=== PATIENT | male | born 1980 | race Caucasian/White ===

== ENCOUNTER 2024-07-14 15:10 | Outpatient (AMB) | payer OTHER, SELFPAY ==
--- NOTE | 2024-07-14 15:13 | A.OFFVIS_ITS ---
Vital Signs 07/14/24 15:16 Height 5 ft 10 in Weight 283 lb 8.231 oz BMI 40.7 BP 136/88 Blood Pressure Location Rt brachial Position Sitting Pulse 103 H Pulse Source Pulse Oximeter Pulse Oximetry (%) 99 Oxygen Delivery Method Room Air Intake Visit Reasons: Hypogonadism Intake Note: New patient internally referred by PCP office Vanda Soria PA-C for Hypogonadism. Hotel Sales Manager Required: No Accompanied by: Self / Same As Patient Allergies valsartan Adverse Reaction (Unknown, Verified 07/14/24 15:17) Headache viloxazine [From Qelbree] Adverse Reaction (Unknown, Verified 07/14/24 15:17) High critically, Anaphylaxis Medication List - Last Reviewed 07/14/24 by RUIZ Mancia desvenlafaxine ER 100 mg PO DAILY methylphenidate HCl ER 36 mg PO DAILY metoprolol succinate ER 100 mg PO DAILY tirzepatide (Mounjaro) 7.5 mg subcut QWEEK HPI Comments Details: The patient is a 43-year-old male presenting with concerns of low testosterone levels and associated symptoms. He has experienced symptoms consistent with hypogonadism for over a year, including erectile dysfunction, reduced libido, and decreased facial hair growth. He has successfully managed sleep apnea with CPAP therapy and achieved control over his diabetes, yet testosterone levels remain low. Previous evaluations involved multiple blood tests confirming low testosterone but no imaging or extensive pituitary evaluation. The patient reports fatigue and decreased muscle strength. He denies significant testicular changes or history of mumps. He recalls past concussions from high school football. He has two children and experienced natural conception. Headaches have improved with diabetes control. The patient manages sleep apnea with CPAP and denies breast tenderness, dizziness, or unexplained weight loss. Weight fluctuation occurred while on Ozempic. The patient denies using anabolic steroids or narcotics and reports minimal alcohol consumption. 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 He is concerned about the impact of his symptoms on his quality of life. - Ozempic for weight management: Initial weight loss with subsequent regain. - CPAP therapy for sleep apnea: Reports significant improvement in symptoms. - Methylphenidate for ADHD: Dose limited due to heart rate concerns. - Metoprolol for heart rate control: Given due to elevated resting heart rate. - Desvenlafaxine for depression: Ongoing treatment with psychiatrist. First diagnosed with Hypogonadism 1 yr ago with labs revealing low testosterone . Not Was started on Testosterone supplementation Not Currently using testosterone. Currently not achieving spontaneous am erections, and unable to achieve erection when desired. Reports low libido. Decreased facial hair and shaving frequency. Denies any change in size or shape of testicles. Denies penile discharge or scrotal tenderness. Denies any history of mumps orchitis. Denies any head trauma except high school football. Has history of KYE. with children who were conceived spontaneously. Sense of smell intact. Denies headache or visual changes, gynecomastia or galactorrhea. Denies orthostatic symptoms, weight loss. Denies change in size of hands or feet. Denies hair loss, weight gain, cold intolerance. No Use of anabolic steroids . No use of methadone or opoids History of DVT or PE: No Labs: T=156 /free T=1.9 PSA CBC [facility] Medical History (Updated 07/14/24 @ 15:39 by Jose Lopez MD) Hypogonadism, testicular Surgical History History of orthopedic surgery Family History Father Depressive disorder Anxiety Malignant neoplasm of skin Mother History of CVA (cerebrovascular accident) Social History Alcohol intake: current Patient Tobacco Use Status: Former Tobacco user Physical Exam Vital Signs: Last Vital Signs Pulse 103 H 07/14/24 15:16 BP 136/88 07/14/24 15:16 Pulse Ox 99 07/14/24 15:16 Oxygen Delivery Method Room Air 07/14/24 15:16 BMI result Body Mass Index 40.7 There is the absence of eunichoidal proportions. Neck exam reveals nl thyroid about 15 gms. Chest exam reveals absence of gynecomastia. Lungs CTA. Heart is S1 S2 Reg R/R. -M/R/G. Abdominal exam is benign. Muscle strength is 5/5 proximally. Examination of genitalia reveals nl size pthalus . Testes are of nl size and consistency. There is Bill Stage V Hair development Assessment & Plan Assessment & Plan (1) Hypogonadism in male: Code(s): E29.1 - Testicular hypofunction Plan This is a 43-year-old white male with a history of low testosterone /obesity. Distinguish between primary and secondary hypogonadism . Plan is to repeat testosterone in a.m. fasting along with LH and FSH as well as am cortisol and ferritin Further workup based on above 1. Hypogonadism The patient exhibits signs of hypogonadism such as erectile dysfunction and reduced libido, supported by previous low testosterone tests. I will conduct morning fasting tests for testosterone, LH, FSH, and cortisol levels. Imaging of the pituitary may be needed if levels indicate. Testosterone therapy will be considered if hypogonadism is confirmed. 2. Sleep Apnea The patient manages sleep apnea with CPAP, improving symptoms. Continued adherence to CPAP is necessary, especially if testosterone therapy is initiated, as it may exacerbate untreated sleep apnea. 4. Erectile Dysfunction and Depression Erectile dysfunction and depression may relate to low testosterone. Addressing hypogonadism could alleviate these symptoms. Continuation of psychiatric treatment is encouraged. I discussed with the patient the potential causes of his low testosterone levels and the importance of determining the etiology before initiating treatment. We talked about the pathway of testosterone production and the potential for issues at different levels, such as the pituitary gland. The risks and benefits of testosterone replacement therapy were reviewed, highlighting its potential to improve symptoms of hypogonadism and the need for careful monitoring. I emphasized the importance of bringing in sleep study results, as untreated sleep apnea can worsen with testosterone therapy. We outlined the next steps, including specific blood tests, and discussed the possibility of imaging if indicated. The patient was informed about the importance of supervisor hardboard fasting blood tests for accurate hormone levels. - Continue using CPAP for sleep apnea management. - Schedule morning fasting blood tests for testosterone, LH, FSH, and cortisol levels. - Bring sleep study results to the next appointment. - - Return for follow-up in two months for further evaluation and discussion of test results. The patient had an opportunity to ask questions regarding treatment plan. The patient expressed understanding and agreement with the above treatment plan. Patient was informed and verbally consented to the use of an ambient scribe for clinic note documentation during this visit. Orders: Orders Lutenizing Hormone Today E29.1 - Testicular hypofunction Follicle Stimulating Hormone Today E29.1 - Testicular hypofunction Ferritin Today E29.1 - Testicular hypofunction Testosterone, Free/Total Today E29.1 - Testicular hypofunction Cortisol Random Today E29.1 - Testicular hypofunction Coding Level of Care Code New Pt Level 4 (95785) Diagnoses Hypogonadism in male E29.1
[2024-07-14 15:16] VITALS: BP 136/88; PULSE 103; O2SAT 99; BMI 40.7
--- OUTSIDE RECORDS SUMMARY | 2024-07-14 15:53 | XMS_ITS | Clinical Summary ---
[facility] Address [address] [place] [address] Care Team Providers Care Customs Manager Name Role Phone Unavailable Primary Care Provider Unavailabl e Social History Tobacco Use Types Packs/Day Years Used Date Smoking Tobacco: Never Assessed Sex and Gender Information Value Date Recorded Sex Assigned at Not on file Gender Identity Not on file Sexual Orientation Not on file Plan of Treatment Not on file
== END 2024-07-14 16:01 | disposition home or self-care (01) ==
LOC: HO.ENCR 15:11
PROVIDERS: PCP Physician Assistant Medical; Visit Provider Internal Medicine Endocrinology, Diabetes & Metabolism
DX: E29.1 Testicular hypofunction (principal)
CPT/HCPCS: 99204

== ENCOUNTER → 2024-07-14 15:10 | Outpatient (BNVA) | payer OTHER, SELFPAY | PROVIDERS: PCP Physician Assistant Medical; Visit Provider Internal Medicine Endocrinology, Diabetes & Metabolism ==

== ENCOUNTER 2024-09-10 07:40 | Outpatient (REF) | payer OTHER, SELFPAY ==
--- OUTSIDE RECORDS SUMMARY | 2024-09-10 07:42 | XMS_ITS | Clinical Summary ---
[facility] Address [address] [place] [address] Care Team Providers Care Pump Servicer Helper Name Role Phone Unavailable Primary Care Provider Unavailabl e Social History Tobacco Use Types Packs/Day Years Used Date Smoking Tobacco: Never Assessed Sex and Gender Information Value Date Recorded Sex Assigned at Not on file Gender Identity Not on file Sexual Orientation Not on file Plan of Treatment Not on file
[2024-09-10 10:24] LABS: Ferritin 109 ng/mL (20-250)
[2024-09-11 18:13] LABS: Follicle Stimulating Hormone 6.9 mIU/mL (1.4-12.8)
[2024-09-16 10:49] LABS: Testosterone, Free 58.6 pg/mL (35.0-155.0)
== END 2024-09-10 07:41 | disposition home or self-care (01) ==
LOC: HO.10HDL 07:40
PROVIDERS: Visit Provider Internal Medicine Endocrinology, Diabetes & Metabolism
DX: E29.1 Testicular hypofunction (principal)
CPT/HCPCS: 36415; 82533; 82728; 83001; 83002; 84402; 84403

== ENCOUNTER 2024-09-14 07:54 | Outpatient (AMB) | payer OTHER, SELFPAY ==
--- OUTSIDE RECORDS SUMMARY | 2024-09-14 07:57 | XMS_ITS | Clinical Summary ---
[facility] Address [address] [place] [address] Care Team Providers Care Parking Enforcement Technician Name Role Phone Unavailable Primary Care Provider Unavailabl e Social History Tobacco Use Types Packs/Day Years Used Date Smoking Tobacco: Never Assessed Sex and Gender Information Value Date Recorded Sex Assigned at Not on file Gender Identity Not on file Sexual Orientation Not on file Plan of Treatment Not on file
[2024-09-14 08:03] VITALS: BP 128/66; PULSE 86; O2SAT 98; BMI 40.7
--- NOTE | 2024-09-14 08:03 | MHC.OFFVIS ---
Vital Signs 09/14/24 08:03 Height 5 ft 10 in Weight 283 lb 15.286 oz BMI 40.7 BP 128/66 Blood Pressure Location Lt brachial Position Sitting Pulse 86 Pulse Source Pulse Oximeter Pulse Oximetry (%) 98 Oxygen Delivery Method Room Air Intake Visit Reasons: f/u hypogonadism Intake Note: Patient present today for Hypogonadism follow up. Palliative Care Nurse Practitioner Required: No Accompanied by: Self / Same As Patient Allergies valsartan Adverse Reaction (Unknown, Verified 09/14/24 08:08) Headache viloxazine (From Qelbree) Adverse Reaction (Unknown, Verified 09/14/24 08:08) High critically, Anaphylaxis Medication List - Last Reconciled 09/14/24 by Jose Lopez MD desvenlafaxine ER 100 mg PO DAILY losartan 100 mg PO DAILY methylphenidate HCl ER 36 mg PO DAILY metoprolol succinate ER 100 mg PO DAILY tirzepatide (Mounjaro) 7.5 mg subcut QWEEK HPI Comments Details: The patient is a 43-year-old male presenting with concerns of low testosterone levels and associated symptoms. He has experienced symptoms consistent with hypogonadism for over a year, including erectile dysfunction, reduced libido, and decreased facial hair growth. He has successfully managed sleep apnea with CPAP therapy and achieved control over his diabetes, yet testosterone levels remain low. Previous evaluations involved multiple blood tests confirming low testosterone but no imaging or extensive pituitary evaluation. The patient reports fatigue and decreased muscle strength. He denies significant testicular changes or history of mumps. He recalls past concussions from high school football. He has two children and experienced natural conception. Headaches have improved with diabetes control. The patient manages sleep apnea with CPAP and denies breast tenderness, dizziness, or unexplained weight loss. Weight fluctuation occurred while on Ozempic. The patient denies using anabolic steroids or narcotics and reports minimal alcohol consumption. 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 He is concerned about the impact of his symptoms on his quality of life. - Ozempic for weight management: Initial weight loss with subsequent regain. - CPAP therapy for sleep apnea: Reports significant improvement in symptoms. - Methylphenidate for ADHD: Dose limited due to heart rate concerns. - Metoprolol for heart rate control: Given due to elevated resting heart rate. - Desvenlafaxine for depression: Ongoing treatment with psychiatrist. First diagnosed with Hypogonadism 1 yr ago with labs revealing low testosterone . Not Was started on Testosterone supplementation Not Currently using testosterone. Currently not achieving spontaneous am erections, and unable to achieve erection when desired. Reports low libido. Decreased facial hair and shaving frequency. Denies any change in size or shape of testicles. Denies penile discharge or scrotal tenderness. Denies any history of mumps orchitis. Denies any head trauma except high school football. Has history of KYE. with children who were conceived spontaneously. Sense of smell intact. Denies headache or visual changes, gynecomastia or galactorrhea. Denies orthostatic symptoms, weight loss. Denies change in size of hands or feet. Denies hair loss, weight gain, cold intolerance. No Use of anabolic steroids . No use of methadone or opoids History of DVT or PE: No Labs: T=156 /free T=1.9 PSA CBC Recent labs pointed towards secondary hypogonadism an MRI of the pituitary was normal. Will have her repeat free testosterone is pending. The patient is a 43-year-old male presenting with concerns related to low testosterone levels and associated symptoms. The patient reports persistent fatigue and lack of improvement in symptoms despite ongoing management. Previous testosterone levels were noted to be borderline low, with the most recent levels still pending. The patient has been using CPAP therapy for sleep apnea consistently. The patient has a history of type 2 diabetes mellitus, which is currently under control with medication. He reports no significant weight loss despite medication adjustments, including the use of Mounjaro. The patient has experienced significant personal stress due to a pending divorce and the disappearance of his spouse. He maintains a healthy diet and is active at work, but reports no significant changes in weight. - Labs: Cortisol level normal, testosterone levels pending. - Imaging: MRI of the pituitary not yet performed. [facility] Medical History (Updated 07/14/24 @ 15:39 by Jose Lopez MD) Hypogonadism, testicular Surgical History History of orthopedic surgery Family History Father Depressive disorder Anxiety Malignant neoplasm of skin Mother History of CVA (cerebrovascular accident) Social History Alcohol intake: current Patient Tobacco Use Status: Former Tobacco user Physical Exam Vital Signs: Last Vital Signs Pulse 86 09/14/24 08:03 BP 128/66 09/14/24 08:03 Pulse Ox 98 09/14/24 08:03 Oxygen Delivery Method Room Air 09/14/24 08:03 BMI result Body Mass Index 40.7 Assessment & Plan Assessment & Plan (1) Hypogonadism, testicular: Code(s): E29.1 - Testicular hypofunction Category: Medical Plan: This is a 43 year old male with to repeat low testosterone levels a 1 pending with low-normal gonadotropin levels. His a.m. cortisol level was sufficient and ferritin level was normal ruling out hemochromatosis. The plan is to await the repeat testosterone level and if it is low to obtain prolactin fasting as well as an MRI of the pituitary. Once this is achieved, we will bring patient back in about 5 weeks for initiation of testosterone therapy During the visit, we discussed the pending testosterone levels and the potential for testosterone replacement therapy if levels remain low. We reviewed the different modalities of testosterone administration, including gels, injections, and pills, considering the patient's insurance coverage and personal preferences. The importance of continued CPAP use for sleep apnea was emphasized to prevent complications. Follow-up was planned in five weeks to review test results and adjust the management plan as needed. Coding Level of Care Code Est Pt Level 3 (65299) Diagnoses Hypogonadism, testicular E29.1
== END 2024-09-14 08:55 | disposition home or self-care (01) ==
LOC: HO.ENCR 07:54
PROVIDERS: PCP Physician Assistant Medical; Visit Provider Internal Medicine Endocrinology, Diabetes & Metabolism
DX: E29.1 Testicular hypofunction (principal)
CPT/HCPCS: 99213

== ENCOUNTER 2024-10-02 17:02 | Outpatient (REF) | payer OTHER, SELFPAY ==
--- NOTE | ~2024-10-02 | MR_ITS ---
EXAMINATION: MR BRAIN AND SELLA WITHOUT AND WITH CONTRAST CLINICAL INFORMATION: Testicular hypofunction/hypogonadism. COMPARISON: None available. TECHNIQUE: Multiplanar, multisequence MRI of the brain and sella was obtained before and after the intravenous administration of 5 mL Gadavist. Examination performed on a 1.5 Mattie Siemens high-field unit. FINDINGS: SELLA: The pituitary gland has normal volume. There is no sellar expansion. There is a normal concave superior border. The infundibulum is normal in thickness and midline. No regions of delayed or increased enhancement within the pituitary gland. Normal cavernous carotid artery flow voids are present. Normal enhancement of the cavernous sinuses is noted. Suprasellar structures are normal alignment on impinged. The optic apparatus is normal. The third ventricle infundibular and optic recesses are normal. BRAIN: There is no diffusion restriction. There is no intracranial hemorrhage, acute infarction, mass effect, or edema. Ventricles, sulci, and cisterns are normal in size and configuration for patient age. No shift of midline. There are no significant white matter signal abnormalities. Midline structures appear normally formed. No abnormal intra or extra-axial enhancement after the administration of contrast. Posterior fossa structures appear normal. Cerebellar tonsils are appropriately located. Major flow voids are preserved within the skull base. The globes and orbital contents demonstrate no abnormalities. Paranasal sinuses are clear bilaterally. The mastoids and tympanic cavities are normally aerated. Extracranial soft tissues demonstrate no abnormalities. No suspicious bone marrow changes are evident. Atlantoaxial joint is normal. MR/MR head/brain wo/w con IMPRESSION: 1. No evidence of intracranial hemorrhage, acute infarction, mass effect, or edema. No abnormal intra or extra-axial enhancement present. 2. The pituitary gland appears normal without focal abnormality. Electronically signed by: Ismael Pool MD 10/04/2024 08:38 AM EDT
== END 2024-10-02 17:03 | disposition home or self-care (01) ==
LOC: HO.MRI 17:02
PROVIDERS: PCP Family Medicine; Visit Provider Internal Medicine Endocrinology, Diabetes & Metabolism
DX: E29.1 Testicular hypofunction (principal)
CPT/HCPCS: 70553; A9585

== ENCOUNTER → 2024-10-02 17:02 | Outpatient (BNV) | payer OTHER, SELFPAY | PROVIDERS: PCP Family Medicine; Visit Provider Radiology Diagnostic Radiology | DX: E29.1 Testicular hypofunction (principal) | CPT/HCPCS: 70553 ==

== ENCOUNTER 2024-10-15 09:35 | Outpatient (REF) | payer OTHER, SELFPAY ==
--- OUTSIDE RECORDS SUMMARY | 2024-10-15 10:23 | XMS_ITS | Clinical Summary ---
[facility] Organization [facility] Address [address] [place] [address] Care Team Providers Care Screen Printer Name Role Phone Unavailable Primary Care Provider Unavailabl e Social History Tobacco Use Types Packs/Day Years Used Date Smoking Tobacco: Never Assessed Sex and Gender Information Value Date Recorded Sex Assigned at Not on file Gender Identity Not on file Sexual Orientation Not on file Plan of Treatment Not on file
== END 2024-10-15 09:36 | disposition home or self-care (01) ==
LOC: HO.10HDL 09:35
PROVIDERS: Visit Provider Internal Medicine Endocrinology, Diabetes & Metabolism
DX: E29.1 Testicular hypofunction (principal)
CPT/HCPCS: 36415; 84146

== ENCOUNTER 2024-10-19 08:03 | Outpatient (AMB) | payer OTHER, SELFPAY ==
--- NOTE | 2024-10-19 08:05 | A.OFFVIS_ITS ---
Vital Signs 10/19/24 08:07 Height 5 ft 10 in Weight 279 lb 8.738 oz BMI 40.1 BP 140/92 H Blood Pressure Location Rt brachial Position Sitting Pulse 99 Pulse Source Pulse Oximeter Pulse Oximetry (%) 97 Oxygen Delivery Method Room Air Intake Visit Reasons: f/u hypogonadism Intake Note: Patient present today for Hypogonadism follow up. Facilities Maintenance Manager Required: No Accompanied by: Self / Same As Patient Allergies valsartan Adverse Reaction (Unknown, Verified 10/19/24 08:07) Headache viloxazine (From Qelbree) Adverse Reaction (Unknown, Verified 10/19/24 08:07) High critically, Anaphylaxis Medication List - Last Reconciled 10/19/24 by Jose Lopez MD desvenlafaxine ER 100 mg PO DAILY losartan 100 mg PO DAILY methylphenidate HCl ER 36 mg PO DAILY metoprolol succinate ER 100 mg PO DAILY tirzepatide (Mounjaro) 7.5 mg subcut QWEEK HPI Comments Details: The patient is a 43-year-old male presenting with concerns of low testosterone levels and associated symptoms. He has experienced symptoms consistent with hypogonadism for over a year, including erectile dysfunction, reduced libido, and decreased facial hair growth. He has successfully managed sleep apnea with CPAP therapy and achieved control over his diabetes, yet testosterone levels remain low. Previous evaluations involved multiple blood tests confirming low testosterone but no imaging or extensive pituitary evaluation. The patient reports fatigue and decreased muscle strength. He denies significant testicular changes or history of mumps. He recalls past concussions from high school football. He has two children and experienced natural conception. Headaches have improved with diabetes control. The patient manages sleep apnea with CPAP and denies breast tenderness, dizziness, or unexplained weight loss. Weight fluctuation occurred while on Ozempic. The patient denies using anabolic steroids or narcotics and reports minimal alcohol consumption. 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 He is concerned about the impact of his symptoms on his quality of life. - Ozempic for weight management: Initial weight loss with subsequent regain. - CPAP therapy for sleep apnea: Reports significant improvement in symptoms. - Methylphenidate for ADHD: Dose limited due to heart rate concerns. - Metoprolol for heart rate control: Given due to elevated resting heart rate. - Desvenlafaxine for depression: Ongoing treatment with psychiatrist. First diagnosed with Hypogonadism 1 yr ago with labs revealing low testosterone . Not Was started on Testosterone supplementation Not Currently using testosterone. Currently not achieving spontaneous am erections, and unable to achieve erection when desired. Reports low libido. Decreased facial hair and shaving frequency. Denies any change in size or shape of testicles. Denies penile discharge or scrotal tenderness. Denies any history of mumps orchitis. Denies any head trauma except high school football. Has history of KYE. with children who were conceived spontaneously. Sense of smell intact. Denies headache or visual changes, gynecomastia or galactorrhea. Denies orthostatic symptoms, weight loss. Denies change in size of hands or feet. Denies hair loss, weight gain, cold intolerance. No Use of anabolic steroids . No use of methadone or opoids History of DVT or PE: No Labs: T=156 /free T=1.9 PSA CBC Recent labs pointed towards secondary hypogonadism an MRI of the pituitary was normal. Will have her repeat free testosterone is pending. The patient is a 43-year-old male presenting with concerns related to low testosterone levels and associated symptoms. The patient reports persistent fatigue and lack of improvement in symptoms despite ongoing management. Previous testosterone levels were noted to be borderline low, with the most recent levels still pending. The patient has been using CPAP therapy for sleep apnea consistently. The patient has a history of type 2 diabetes mellitus, which is currently under control with medication. He reports no significant weight loss despite medication adjustments, including the use of Mounjaro. The patient has experienced significant personal stress due to a pending divorce and the disappearance of his spouse. He maintains a healthy diet and is active at work, but reports no significant changes in weight. - Labs: Cortisol level normal, testosterone levels pending. - Imaging: MRI of the pituitary not yet performed. Repeat total testosterone was low normal and free testosterone was within normal limits. The patient is a 43-year-old male presenting with concerns related to testosterone levels, erectile dysfunction, and weight management. The patient has a history of hypogonadism, with testosterone levels previously recorded as low normal. Recent tests show an improvement in testosterone levels, with total testosterone increasing from 150 to 275 and free testosterone at 58, which is midnormal. The patient reports fatigue, which may be multifactorial, and is not significantly low in testosterone levels. Erectile dysfunction is a significant concern for the patient, who reports a lack of sexual drive and has experienced headaches with Viagra use. The patient has not tried other medications like Cialis due to insurance coverage issues. The patient is also managing obesity and type 2 diabetes mellitus, with a recent weight loss of about 4 to 5 pounds. Despite being on Mounjaro, a medication known to aid weight loss, the patient has not experienced significant weight reduction. The patient's A1c has improved from 7.9 to 6.7, indicating better glycemic control. The patient has a history of sleep apnea and uses a CPAP machine nightly, yet still reports persistent fatigue and difficulty losing weight. The patient reports eating a healthy diet, focusing on more fish and chicken w hile reducing red meat intake. He has previously worked with a intelligence research specialist to improve his dietary habits, although insurance coverage was limited. The patient has attempted to incorporate more nuts into his diet but faced challenges due to his daughter's nut allergy. I also PFSH Medical History (Updated 10/19/24 @ 08:21 by Jose Lopez MD) Weight gain Hypogonadism, testicular Surgical History History of orthopedic surgery Family History Father Depressive disorder Anxiety Malignant neoplasm of skin Mother History of CVA (cerebrovascular accident) Social History Alcohol intake: current Patient Tobacco Use Status: Former Tobacco user Assessment & Plan Assessment & Plan (1) Hypogonadism, testicular: Code(s): E29.1 - Testicular hypofunction Category: Medical Plan: This is a 43 year old male with to repeat low testosterone levels but repeat 3rd level was low normal with free testosterone level being in the normal range. Gonadotropins were normal The plan is to explain to the patient that the free testosterone levels are normal and there may not be a need for testosterone replacement this point. I did prescribe Cialis for erectile dysfunction I gave him the number of weight loss clinic at [facility] bring him namely Dr. Bell. We will also check 24 hour urine for free cortisol and creatinine to rule out Sandy syndrome although doubt. If above is normal, thus no need for any further endocrine workup or follow up at this point the patient returned to the care of his primary care provider. I also offered him a nutritional referral here but he declined 1. Hypogonadism The patient's testosterone levels have improved, with total testosterone increasing to 275 and free testosterone at 58, which is midnormal. Continued monitoring of testosterone levels is advised, but no immediate intervention is necessary as levels are stabilizing. 2. Erectile dysfunction The patient experiences erectile dysfunction and has tried Viagra, which caused headaches. A trial of Cialis is recommended, considering insurance coverage, to assess its efficacy and side effects. 3. Obesity The patient has lost 4 to 5 pounds but continues to struggle with weight management despite being on Mounjaro. Further evaluation for potential underlying causes, such as Sandy syndrome, is planned with a 24-hour urine test. I also gave him the number of the obesity clinicof Dr. Bell at [facility] for follow up with weight loss 6. Fatigue The fatigue may be multifactorial, and further investigation into potential endocrine causes is warranted. The patient had an opportunity to ask questions regarding treatment plan. The patient expressed understanding and agreement with the above treatment plan. The patient is aware they should contact our office by phone for worsening glucose readings or for any low blood sugars which may warrant a change in diabetes medication. Compliance is encouraged with medications and any followup testing/consults which may have been ordered. Patient was informed and verbally consented to the use of an ambient scribe for clinic note documentation during this visit. Orders: Orders Cortisol, Free 24Hr Urine Today R63.5 - Abnormal weight gain Creatinine, 24 Hr Group Today R63.5 - Abnormal weight gain Medications: New tadalafil (Cialis) administer approximately 30min before sexual activity; do not use more than 1 dose per 24hrs 10 mg PO .prn PRN 10 tabs 0RF sexual activity Coding Level of Care Code Est Pt Level 3 (60628) Diagnoses Hypogonadism, testicular E29.1
[2024-10-19 08:07] VITALS: BP 140/92; PULSE 99; O2SAT 97; BMI 40.1
== END 2024-10-19 08:32 | disposition home or self-care (01) ==
LOC: HO.ENCR 08:04
PROVIDERS: PCP Physician Assistant Medical; Visit Provider Internal Medicine Endocrinology, Diabetes & Metabolism
DX: E29.1 Testicular hypofunction (principal)
CPT/HCPCS: 99213